=== PATIENT | female | born 1940 | race Caucasian/White ===

== ENCOUNTER 2025-02-06 08:23 | Outpatient (CLI) | payer OTHER ==
[~2025-02-06 08:23] MED LIST: ADULT ASPIRIN81 MG PO; ANAPROX PO; CIPROFLOXACIN750 MG PO; CLONAZEPAM1 MG PO; COZAAR50 MG PO; DOCUSATE SODIU100 MG PO; KETO10TA2 PO; MEDROLPACK PO; METHYLPRED4 MG/DOSE- PO; NEURONTIN PO; ORPH100T PO; PERCOCET 5/3251 TAB PO; PRILOSEC OTC20 MG PO; ULTRAM50 MG PO; XANAX0.25 MG PO
== END 2025-02-06 08:37 | disposition home or self-care (01) ==
LOC: TOM 08:23
PROVIDERS: ATTEND Internal Medicine Gastroenterology
DX: R19.5 Other fecal abnormalities (principal)